=== PATIENT | male | born 1950 | race Caucasian/White ===

== ENCOUNTER → 2017-08-29 | Outpatient (CLI) | payer MEDICARE ==
--- NOTE | 2017-08-30 08:25 | RAD ---
3 views left foot 08/29/2017 Clinical indication: Left foot pain throughout the metatarsals. Comparison: None. Findings: There is moderate flattening of the second metatarsal head with subchondral sclerosis and cystic change. There may be ill-defined fracture lines of the subchondral component of the second metatarsal head. Mild first and second MTP osteoarthritis with osteophytic spurring. There is enthesophyte formation at the insertion of the Achilles on the calcaneus. Impression: 1. There is flattening of the first and second metatarsal heads which may be a normal variant, however AVN can have a similar appearance. The second metatarsal head demonstrates possible subacute to chronic fracture lines. If clinically indicated, MRI could be obtained for further evaluation. 2. Mild first MTP and moderate second MTP degenerative changes.
== END | disposition home or self-care (01) ==
LOC: RAD 16:27
PROVIDERS: ATTEND Family Medicine
DX: M19.072 Primary osteoarthritis, left ankle and foot (principal)
CPT/HCPCS: 73630

== ENCOUNTER 2020-06-24 23:22 | Emergency (ER) | payer MEDICARE ==
[~2020-06-24] VITALS: Ht 180.3 cm; Wt 88.9 kg
--- NOTE | 2020-06-24 23:25 | PHYS DOC ---
Past History Past Medical History: Arthritis, Diabetes, DVT Past Surgical History: Hip Replacement, Knee Replacement, Other Past Surgical History Shoulder surgeries bilateral, wrist surgeries General Adult HPI: HPI: ".. I got a clot in this Rt. calf.. I ve had it once before .. and I was on Coumadin before.. I got it after surgery.. on the knee..."..." Well.. I was working on my car.. and maybe pull a muscle in that Rt. calf.. but now it like it got a blood clott in it.. I did have a clot in it before..." Patient is a 70 year old male who presents with above hx and complaints of pain, redness and cording in right calf. Is the same leg he had previous DVT after a knee surgery. Patient denies any specific history of coagulopathy other than post surgery. Patient on previous clot in right calf was on Coumadin for approximately 6 months. Patient currently not on any anticoagulants other than a daily aspirin. Patient has past medical history of hypertension, multiple orthopedic surgeries, DVT, vertigo , diabetes, and arthritis. Patient follows with . No recent travel outside [facility]. No recent specific ill contacts. Review of Systems: Review of Systems: Constitutional: Denies fever or chills Eyes: Denies change in visual acuity HENT: Denies nasal congestion or sore throat Respiratory: Denies cough or shortness of breath Cardiovascular: Denies chest pain or edema GI: Denies abdominal pain, nausea, vomiting, bloody stools or diarrhea : Denies dysuria Musculoskeletal: Complains of right calf pain and swelling Integument: Denies rash Neurologic: Denies headache, focal weakness or sensory changes Endocrine: Denies polyuria or polydipsia Lymphatic: Denies swollen glands Psychiatric: Denies depression or anxiety Family History: Family History: Noncontributory to presentation Current Medications: Current Meds: See nursing for home meds Allergies: Allergies: Allergies Coded Allergies Type Severity Reaction Last Updated Verified amoxicillin Allergy Unknown 05/26/14 Yes hydrocodone Allergy Unknown 05/26/14 Yes oxycodone Allergy Unknown 05/26/14 Yes Physical Exam: PE: Constitutional: Mild distress, non-toxic appearance. [] HENT: Normocephalic, atraumatic, bilateral external ears normal, oropharynx moist, no oral exudates, nose normal. [] Eyes: PERRLA, EOMI, conjunctiva normal, no discharge. [] Neck: Normal range of motion, no tenderness, supple, no stridor. [] Cardiovascular:Heart rate regular rhythm, no murmur, PMI to the left Lungs & Thorax: Bilateral breath sounds equal apex with scattered wheezes on auscultation [] Abdomen: Bowel sounds normal, soft, no tenderness, no masses, no pulsatile masses. Old surgery scars Skin: Warm, dry, no erythema, no rash. Poor turgor Back: No tenderness, no CVA tenderness. [] Extremities: Right calf tenderness, no cyanosis, no clubbing, ROM intact, right calf edema. Right calf cording. arthritic changes. Bilateral shoulder scars. Bilateral knees scars. Left hip scar Neurologic: Alert and oriented X 3, normal motor function, normal sensory function, no focal deficits noted. [] Psychologic: Affect anxious, judgement normal, mood normal. [] EKG: EKG: My interpretation of EKG shows a sinus rhythm at 70 bpm. No findings of acute STEMI with contralateral changes [] Radiology/Procedures: Radiology/Procedures: [][place] [address] IMAGING REPORT Signed PATIENT: FRANK JHA ACCOUNT: [id number] : 1950 LOCATION: ER AGE: 70 SEX: M EXAM STATUS: PRE ER ORD. PHYSICIAN: TABITHA MCGHEE MD REASON: dyspnea PROCEDURE: PORTABLE CHEST 1V XR CHEST 1V History: Reason: dyspnea / Spl. Instructions: / History: Comparison: None. Findings: No consolidation or pleural effusion. Normal heart size. No pneumothorax. Bilateral shoulder arthroplasties. Impression: 1. No acute cardiopulmonary process. Electronically signed by: Дмитрий Harvey DO (06/25/2020 12:13 AM) [facility] DICTATED AND SIGNED BY: ДМИТРИЙ HARVEY DO DATE: 06/25/20 0013 CC: TABITHA MCGHEE MD; ALMA JARVIS MD ~MTH0 0 Heart Score: HEART Score for Chest Pain: HEART Score for Chest Pain Response (Comments) Value History Slighlty/Non-Suspicious 0 ECG Normal 0 Age > 65 2 Risk Factors 1 or 2 Risk Factors 1 Troponin < Normal Limit 0 Total 3 Risk Factors: Risk Factors: DM, Current or recent (<one month) smoker, HTN, HLP, family history of CAD, obesity. Risk Scores: Score 0 - 3: 2.5% MACE over next 6 weeks - Discharge Home Score 4 - 6: 20.3% MACE over next 6 weeks - Admit for Clinical Observation Score 7 - 10: 72.7% MACE over next 6 weeks - Early Invasive Strategies Course & Med Decision Making: Course & Med Decision Making Patient follow-up with primary care. Consider outpatient ultrasound testing for DVT in right calf. Clinically patient appears to have a DVT will start on Eliquis 10 mg twice a day for 7 days. Then reduce to 5 mg twice a day for 7 days. Suspect will require additional treatment with Eliquis. If unable to get prescription filled will need to be switched to Coumadin. Patient to hold aspirin currently. Patient return if any concerns. Take Tylenol for pain. Must follow-up. Advised patient monitor closely for signs of bleeding, ecchymosis, petechiae. Return if any concerns. Impression: 1. Clinical DVT right calf 2. Elevated D-dimer 1.19 3. Creatinine 1.3 4. Diabetes glucose 195 [] Dragon Disclaimer: Dragon Disclaimer: This electronic medical record was generated, in whole or in part, using a voice recognition dictation system. Departure Departure: Referrals: ALMA JARVIS MD (PCP) Scripts Apixaban (ELIQUIS) 5 Mg Tablet 5 MG PO BID for dvt for 7 Days, #14 TAB Prov: TABITHA MCGHEE MD 06/25/20 Apixaban (ELIQUIS) 5 Mg Tablet 10 MG PO BID for dvt for 7 Days, #28 TAB Prov: TABITHA MCGHEE MD 06/25/20 Dragon Disclaimer This chart was dictated in whole or in part using Voice Recognition software in a busy, high-work load, and often noisy Emergency Department environment. It may contain unintended and wholly unrecognized errors or omissions. Dragon Disclaimer This chart was dictated in whole or in part using Voice Recognition software in a busy, high-work load, and often noisy Emergency Department environment. It may contain unintended and wholly unrecognized errors or omissions. TABITHA MCGHEE MD Jun 24, 2020 23:25
[2020-06-24] MEDS ORDERED: IV RINGERS SOLUTION,LACTATED 1,000 ML IV SCH (23:30)
--- NOTE | 2020-06-25 00:07 | EKG ---
[address] [address] Test Date: 2020-06-24 Test Time: 23:55:27 Pat Name: FRANK JHA Department: Room: Gender: M [employer]: : 1950 Requested By: TABITHA MCGHEE Order Number: [id number] Reading MD: Measurements Intervals [place] Rate: 70 P: 42 OR: 160 QRS: 15 QRSD: 98 T: 41 QT: 402 QTc: 437 Interpretive Statements SINUS RHYTHM NORMAL ECG RI6.02 No previous ECG available for comparison
--- NOTE | 2020-06-25 00:16 | RAD ---
XR CHEST 1V History: Reason: dyspnea / Spl. Instructions: / History: Comparison: None. Findings: No consolidation or pleural effusion. Normal heart size. No pneumothorax. Bilateral shoulder arthropl asties. Impression: 1. No acute cardiopulmonary process. Electronically signed by: Дмитрий Harvey DO (06/25/2020 12:13 AM) [facility]
[2020-06-25] MEDS ORDERED: OMEP40CA45 PO (01:38)
[2020-06-25] MEDS ORDERED: ATORVASTATIN CA80 MG PO (01:38)
[2020-06-25] MEDS ORDERED: OMEG-117 PO (01:38)
[2020-06-25] MEDS ORDERED: MULT-237 PO (01:38)
[2020-06-25] MEDS ORDERED: NABU750T7 PO (01:38)
[2020-06-25] MEDS ORDERED: LISI10TA2 PO (01:38)
[2020-06-25 02:01] LABS: BASO % 1 % (0-3); EOS # 0.2 x10^3/uL (0.0-0.7); EOS % 3 % (0-3); HEMATOCRIT 42.8 % (39.0-53.0); LYMPH # 1.7 x10^3/uL (1.0-4.8); LYMPH % 32 % (24-48); MEAN CORPUSCULAR HEMOGLOBIN 29 pg (25-35); MEAN CORPUSCULAR HGB CONC 33 g/dL (31-37); MEAN CORPUSCULAR VOLUME 89 fL (79-100); MONO # 0.5 x10^3/uL (0.0-1.1); MONO % 10 % (0-9); NEUT # 2.9 x10^3uL (1.8-7.7); NEUT % 55 % (31-73); PLATELET COUNT 146 x10^3/uL (140-400); RED BLOOD COUNT 4.79 x10^6/uL (4.30-5.70); RED CELL DISTRIBUTION WIDTH 14.6 % (11.5-14.5); WHITE BLOOD COUNT 5.3 x10^3/uL (4.0-11.0)
[2020-06-25 02:02] LABS: CALCIUM 8.5 mg/dL (8.5-10.1); CREATININE 1.3 mg/dL (0.7-1.3); GFR 54.3; POTASSIUM 3.7 mmol/L (3.5-5.1)
[2020-06-25 02:07] LABS: BILIRUBIN,URINE NEG (NEG); CLARITY,URINE CLEAR; COLOR,URINE YELLOW; GLUCOSE,URINE 250 mg/dL (NEG)
[2020-06-25 02:08] LABS: BACTERIA,URINE FEW /HPF (0-FEW); NITRITE,URINE NEG (NEG); RBC,URINE 0 /HPF (0-2); SQUAMOUS EPITHELIAL CELL,UR FEW /LPF; UROBILINOGEN,URINE 0.2 mg/dL (0.2 mg/dL); WBC,URINE 0 /HPF (0-4)
[2020-06-25 02:11] LABS: BARBITURATES NEG (NEG); BENZODIAZEPINES NEG (NEG); CANNABINOIDS NEG (NEG); COCAINE NEG (NEG); METHADONE NEG (NEG); OPIATES NEG (NEG); PHENCYCLIDINE NEG (NEG)
[2020-06-25 02:12] LABS: AMPHETAMINE/METHAMPHETAMINE NEG (NEG)
[2020-06-25 02:14] LABS: ALBUMIN 3.6 g/dL (3.4-5.0); DIRECT BILIRUBIN 0.1 mg/dL (0.0-0.2); TOTAL BILIRUBIN 0.6 mg/dL (0.2-1.0); TOTAL PROTEIN 6.8 g/dL (6.4-8.2)
[2020-06-25] MEDS ORDERED: APIX5TAB3 PO (02:32)
[2020-06-25 03:00] VITALS: BP 130/71
[2020-06-25 10:52] LABS: THYROID STIM HORMONE (TSH) 3.138 uIU/mL (0.358-3.740)
== END 2020-06-25 03:00 | disposition home or self-care (01) ==
LOC: ER 23:22
DX: I82.4Z1 Acute embolism and thrombosis of unspecified deep veins of right distal lower extremity (principal); R79.1 Abnormal coagulation profile; R79.89 Other specified abnormal findings of blood chemistry; E11.9 Type 2 diabetes mellitus without complications; M19.90 Unspecified osteoarthritis, unspecified site; Z88.1 Allergy status to other antibiotic agents; Z79.899 Other long term (current) drug therapy; Z88.5 Allergy status to narcotic agent; Z86.718 Personal history of other venous thrombosis and embolism
CPT/HCPCS: 36415; 71045; 80048; 80061; 80076; 80307; 81001; 82550; 83690; 83735; 83880; 84443; 84484; 85025; 85379; 85610; 85730; 93005; 96360; 96361; 99285; J7120

== ENCOUNTER → 2020-06-30 | Outpatient (CLI) | payer MEDICARE ==
[2020-06-25 03:00] VITALS: BP 130/71
[~2020-06-30] MED LIST: APIX5TAB3 PO; ATORVASTATIN CA80 MG PO; LISI10TA2 PO; MULT-237 PO; NABU750T7 PO; OMEG-117 PO; OMEP40CA45 PO
--- NOTE | 2020-06-30 17:03 | RAD ---
Study: CT abdomen/pelvis without intravenous contrast Indication: Epigastric pain. Comparison: None. Technique: Helical CT imaging performed of the abdomen and pelvis without the use of intravenous cont rast. Sagittal and coronal reformats were obtained. One or more of the following individualized dose reduction techniques were utilized for this examinat ion: 1. Automated exposure control 2. Adjustment of the mA and/or kV according to patient size 3. Use of iterative reconstruction technique. Findings: Inherently limited evaluation without intravenous contrast. Chest: The visualized esophagus and mediastinal contents are within normal limits. There does appear to be right coronary artery calcific atherosclerosis. No pulmonary nodule is identified that would me et size criteria for dedicated follow-up. No confluent airspace opacity. Liver: Unremarkable. Gallbladder/Biliary Tree: The gallbladder and biliary tree are within normal limits. Pancreas: Atrophic/fatty infiltrated pancreas. No findings of pancreatitis. No discrete mass. Spleen: Within normal limits for size. Adrenal Glands: No adrenal gland mass. Kidneys/Ureters/Bladder: Nonspecific perinephric fat stranding. No complex cyst or mass is identified noting the absence of contrast which limits evaluation. No nephrolithiasis or collecting system dila tation. No asymmetric urinary bladder wall thickening or significant pericystic inflammation. Reproductive Organs: Prostatomegaly measuring up to 5.2 cm transverse. Colon: A few colonic diverticuli without diverticulitis. Appendix: Within normal limits. Small Bowel: Nonobstructed. Stomach: No discrete abnormality noting limited assessment due to underdistention. Vasculature: Nonaneurysmal aorta. Lymph Nodes: Unremarkable. Peritoneum and Body Wall: No free fluid or pneumoperitoneum. Bones: Severe left hip arthrosis. Less pronounced hip arthrosis on the right. Intact lumbar fusion co nstruct. No acute osseous abnormality. Miscellaneous: None. Impression: 1. No acute process is seen throughout the abdomen or pelvis to explain the patient's symptoms. 2. Prostatomegaly and additional chronic observations which are detailed in the body the report. Electronically signed by: ENZO BLACKWELL MD (06/30/2020 5:01 PM) [facility]
== END ==
LOC: CT 15:01
PROVIDERS: ATTEND Family Medicine
DX: K57.32 Diverticulitis of large intestine without perforation or abscess without bleeding (principal); N40.0 Benign prostatic hyperplasia without lower urinary tract symptoms
CPT/HCPCS: 74176